=== PATIENT | male | born 1960 | race Caucasian/White ===

== ENCOUNTER 2019-10-13 21:09 | Emergency (ER) | payer SELFPAY ==
[2019-10-13 21:22] VITALS: BP 183/102; PULSE 109; RESP 18; TEMP 37; O2SAT 98; BMI 39.9
--- NOTE | 2019-10-13 21:23 | XR_ITS ---
WS: [id number] PORTABLE CHEST HISTORY: cough COMPARISON: 06/06/2017 Elevated RIGHT hemidiaphragm with mild eventration is stable. Lungs are clear. No pleural effusion or pneumothorax. Cardiac size: Normal. Mediastinum/Aorta: Normal mediastinum. No osseous abnormality seen. XR/XR chest 1V portable [id number] IMPRESSION: Unremarkable portable chest.
[2019-10-13 22:21] LABS: Basophils # 0.1 10^3/uL (0.0-0.1); Basophils % 0.7 %; Eosinophils # 0.9 10^3/uL (0.0-0.8); Eosinophils % 7.6 %; Hematocrit 43.9 % (42.0-52.0); Hemoglobin 14.1 g/dL (11.7-16.6); Lymphocytes # 1.8 10^3/uL (0.8-4.8); Lymphocytes % 14.7 %; Mean Corpuscular HGB Conc 32.1 g/dL (30.0-36.0); Mean Corpuscular Hemoglobin 27.3 pg (28.0-34.0); Mean Corpuscular Volume 85.1 fL (80-94); Mean Platelet Volume 9.3 fL (7.4-10.4); Monocytes # 0.8 10^3/uL (0.2-0.9); Monocytes % 6.9 %; Neutrophils # 8.4 10^3/uL (1.8-7.7); Neutrophils % 69.6 %; Nucleated Red Blood Cells % 0 %; Platelet Count 416 10^3/cmm (130-400); Red Blood Count 5.16 10^6/uL (4.1-5.3); Red Cell Distribution Width 13.2 % (12.1-15.1)
[2019-10-13 22:45] LABS: Alanine Aminotransferase 33 U/L (0-41); Albumin Level 4.6 g/dL (3.5-5.2); Alkaline Phosphatase 128 IU/L (40-130); Anion Gap 17.4 (5-19); Aspartate Amino Transferase 34 U/L (0-40); Blood Urea Nitrogen 19 mg/dL (6-20); Carbon Dioxide 26 mmol/L (22-29); Chloride 99 mmol/L (98-107); Glucose 256 mg/dL (74-109); NT Pro B Type Natriuretic Pept 22 pg/mL (0-125); Potassium 4.4 mmol/L (3.5-5.1); Sodium 138 mmol/L (136-145); Total Bilirubin 0.2 mg/dL (0.15-1.2); Total Protein 7.6 g/dL (6.6-8.7)
--- NOTE | 2019-10-13 23:40 | ED_ITS ---
Entered by Loly Carter, acting as scribe for Caity Abdul MD Oct 13, 2019 21:09 HPI - SOB/Dyspnea General: Chief Complaint: Shortness of Breath/Dyspnea Stated Complaint: SOB, COUGHING Time Seen by Provider: 10/13/19 23:37 Source: patient Mode of arrival: ambulatory Limitations: no limitations History of Present Illness: HPI Narrative: 59 yo m came to the er pov with family. Onset was yesterday. Pt states that he was coughing so much that he had 2 syncope episodes. Pt states that he can lay flat at all. Pt states that his cough has been getting worse. MD elicited complaint: shortness of breath and cough Onset (ago): day(s) (today) Timing: constant Severity: mild Exacerbating factors: nothing Relieving factors: oxygen and rest Associated symptoms: Deny abdominal pain, chest pain, fever(s), polyuria or vomiting Related Data: Home oxygen amount: none Review of Systems Const: Denies: fever or chills Eyes: Denies: change in vision ENMT: Denies: throat pain or mouth pain Card: Denies: chest pain Resp: Reports: shortness of breath GI: Denies: abdominal pain or vomiting Musc: Denies: back pain or joint pain Skin/Breast: Denies: rash Neuro: Denies: headache Psych: Denies: depression Endo: Denies: excessive urination Jayden/Lymph: Denies: easy bruising All/Imm: Denies: hives PFSH ED PFSH: Statuses (acute, chronic, etc) shown below reflect problem list status as previously entered and may not be historically accurate Social History Smoking and tobacco status: former smoker Physical Exam Const: COMMON NORMALS: no apparent distress and healthy appearing HENMT: COMMON NORMALS: normocephalic and external nose normal HEAD & SCALP: normocephalic NOSE: external nose normal and no nasal discharge (nasal dischage) Eye: COMMON NORMALS: PERRL PUPIL: Yes PERRL Neck/C-Spine: COMMON NORMALS: full ROM and no lymphadenopathy Chest: COMMONS NORMALS: inspection of chest normal Resp: COMMON NORMALS: normal respiratory effort OTHER: diffuse wheezes Cardio: COMMON NORMALS: regular rate and regular rhythm RATE: regular rate RHYTHM: regular rhythm GI: COMMON NORMALS: soft to palpation PALPATION: Yes soft Extremity: COMMON NORMALS: normal to inspection, full ROM and normal capillary refill Psych: COMMON NORMALS: mental status grossly normal and cooperative Skin: COMMON NORMALS: no rashes or lesions noted GENERAL SKIN EXAM: no rashes or lesions noted Course Vital Signs: Vital signs: Vital Signs Temperature 98.6 F 10/13/19 21:22 Pulse Rate 105 H 10/14/19 00:35 Respiratory Rate 17 10/14/19 00:32 Blood Pressure 183/102 10/13/19 21:22 Pulse Oximetry 93 10/14/19 00:32 MDM - SOB/Dyspnea MDM Narrative: Medical decision making narrative: Patient presents here with cough along with bronchitis. Patient has no signs of pneumonia and white cell count here is normal. Patient's feels much improved after breathing treatment will place on steroids for 5 days. Patient is to stop his lisinopril as well. Patient is to follow-up with primary care doctor in 3 to 5 days and return if worsening. Lab Data: Labs: Lab Results 10/13/19 10/13/19 Range/Units 22:16 22:16 WBC 12.0 H (4.0-10.0) 10^3/ uL RBC 5.16 (4.1-5.3) 10^6/u L Hgb 14.1 (11.7-16.6) g/dL Hct 43.9 (42.0-52.0) % MCV 85.1 (80-94) fL MCH 27.3 L (28.0-34.0) pg MCHC 32.1 (30.0-36.0) g/dL RDW 13.2 (12.1-15.1) % Plt Count 416 H (130-400) 10^3/c mm MPV 9.3 (7.4-10.4) fL Neut % (Auto) 69.6 % Lymph % (Auto) 14.7 % [place] % (Auto) 6.9 % Eos % (Auto) 7.6 % Baso % (Auto) 0.7 % Neut # (Auto) 8.4 H (1.8-7.7) 10^3/u L Lymph # (Auto) 1.8 (0.8-4.8) 10^3/u L [place] # (Auto) 0.8 (0.2-0.9) 10^3/u L Eos # (Auto) 0.9 H (0.0-0.8) 10^3/u L Baso # (Auto) 0.1 (0.0-0.1) 10^3/u L Nucleated RBC % (a uto) 0 % Nucleated RBCs # 0.0 /100WBC Sodium 138 (136-145) mmol/L Potassium 4.4 (3.5-5.1) mmol/L Chloride 99 (98-107) mmol/L Carbon Dioxide 26 (22-29) mmol/L Anion Gap 17.4 (5-19) BUN 19 (6-20) mg/dL Creatinine 0.9 (0.7-1.2) mg/dL GFR Calculation 87.0 L (90-130) mL/min Glucose 256 H (74-109) mg/dL Calcium 10.0 (8.6-10.0) mg/Dl Total Bilirubin 0.2 (0.15-1.2) mg/dL AST 34 (0-40) U/L ALT 33 (0-41) U/L Alkaline Phosphata se 128 (40-130) IU/L NT-Pro-B Natriuret Pep 22 (0-125) pg/mL Total Protein 7.6 (6.6-8.7) g/dL Albumin 4.6 (3.5-5.2) g/dL Globulin 3.0 (1.3-4.6) g/dL Discharge Plan Discharge Patient Disposition: Home, Self-Care Clinical Impression: Bronchitis Condition: Stable Prescriptions: New prednisone 50 mg tablet 50 mg PO DAILY Qty: 5 RF: 0 No Action albuterol sulfate 2.5 mg /3 mL (0.083 %) solution for nebulization 2.5 mg inhalation Q6H RF: 0 Flomax 0.4 mg capsule 0.4 mg PO DAILY RF: 0 Prinivil 10 mg tablet 10 mg PO DAILY RF: 0 Neurontin 100 mg capsule 100 mg PO TID RF: 0 ProAir HFA 90 mcg/actuation HFA aerosol inhaler 90 mcg INHALATION Q2H RF: 0 Novolog Mix 70-30FlexPen U-100 100 unit/mL (70-30) insulin pen 5 unit SUBCUT TID RF: 0 Lantus Solostar U-100 Insulin 100 unit/mL (3 mL) insulin pen 25 unit SUBCUT DAILY RF: 0 Discharge Orders: Discharge Order (Routine); Ordered 10/14/19 Ordered By: Caity Abdul Discharge Diet: Advance as tolerated Discharge Activity: Resume usual activity Patient Instructions: Acute Bronchitis (ED) Coding Level of Care Code ED Administrative Sales Assistant for Chg Fwd Exam Problem Focused The documentation recorded by the Raul donald Stephanie Lyn, accurately reflects the service I personally performed and the decisions made by Franko botello Korby, MD Oct 13, 2019 21:09
[2019-10-14 00:31] VITALS: PULSE 100; RESP 18; O2SAT 95
[2019-10-14] MEDS: ipratropium-albuterol 3 mL Neb INHALATION (00:31)
[2019-10-14 00:32] VITALS: PULSE 108; RESP 17; O2SAT 93
[2019-10-14 00:35] VITALS: PULSE 105
[2019-10-14 02:07] VITALS: BP 154/86; PULSE 102; RESP 14; O2SAT 96
== END 2019-10-14 01:40 | disposition home or self-care (01) ==
PROVIDERS: Emergency Provider Emergency Medicine
DX: J40 Bronchitis, not specified as acute or chronic (principal); Z79.4 Long term (current) use of insulin; Z87.891 Personal history of nicotine dependence
CPT/HCPCS: 36415; 71045; 80053; 83880; 85025; 96374; 99281; J2930

== ENCOUNTER 2019-12-02 20:09 | Emergency (ER) | payer SELFPAY ==
[2019-12-02 20:29] VITALS: BP 146/91; PULSE 95; RESP 18; TEMP 36.9; O2SAT 95; BMI 39.1
== END 2019-12-02 20:57 | disposition left against medical advice (07) ==
LOC: ER 21:10
DX: M54.9 Dorsalgia, unspecified (principal); M54.2 Cervicalgia; Z53.21 Procedure and treatment not carried out due to patient leaving prior to being seen by health care provider
CPT/HCPCS: 99281

== ENCOUNTER 2019-12-03 12:32 | Emergency (ER) | payer SELFPAY ==
[2019-12-03 12:33] VITALS: BP 134/87; PULSE 107; RESP 18; O2SAT 96; BMI 39.9
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
[2019-12-03] MEDS: HYDROcodone-acetaminophen 5-325 mg Tablet 1 TAB PO (12:57)
[2019-12-03 13:51] VITALS: BP 128/73; PULSE 96; RESP 18; O2SAT 94
== END 2019-12-03 13:51 | disposition home or self-care (01) ==
PROVIDERS: Emergency Provider Emergency Medicine
DX: S13.4XXA Sprain of ligaments of cervical spine, initial encounter (principal); S39.012A Strain of muscle, fascia and tendon of lower back, initial encounter; V89.0XXA Person injured in unspecified motor-vehicle accident, nontraffic, initial encounter
CPT/HCPCS: 72072; 72100; 73110; 99281; 99283

== ENCOUNTER 2020-04-05 13:34 | Emergency (ER) | payer SELFPAY ==
[2020-04-05 13:46] VITALS: BP 135/75; PULSE 97; RESP 14; TEMP 36.8; O2SAT 96; BMI 36.1
--- NOTE | 2020-04-05 16:04 | W.ED.SKABFB ---
Documented by User: ANDRESSA Cordero 04/06/20 17:27 HPI - Skin/Abscess/Foreign Bdy General: Chief complaint: Skin/Abscess/Foreign Body Stated complaint: sent from Time Seen by Provider: 04/05/20 15:46 History of Present Illness: HPI narrative: Patient is a 60-year-old male who comes to the ED with an abscess on his right palm and on right elbow. Patient has a past medical history of type 2 diabetes and hypertension. Patient was seen last in urgent care for the abscess on his right palm and he was given Bactrim and told to follow-up in a couple days for reevaluation. Patient says a couple days after abscess got worse on right palm and started draining puslike fluid. He also said that an abscess formed on the medial anterior side of right elbow, since . He went and saw Dr. Hoang today and was sent directly over to ED for further evaluation. Here in the ED both right palm and right elbow abscesses are tender and red. The palm abscess is actively draining purulent malodorous fluid. Patient denies any past history of MRSA or staph infections. Associated symptoms: Deny chills, fever(s), nausea or vomiting Review of Systems Const: Denies: fever(s), chills or fatigue Eyes: Denies: change in vision or eye discomfort ENMT: Denies: throat pain, odynophagia, nasal discharge or nasal congestion Card: Denies: chest pain, palpitations, edema, swelling of feet/ankles, dyspnea on exertion or orthopnea Resp: Denies: dyspnea, productive cough or non-productive cough GI: Denies: abdominal pain, nausea, vomiting, diarrhea, constipation or hematochezia : Denies: flank pain, difficulty urinating, dysuria or hematuria Musc: Denies: neck pain, back pain or extremity swelling Skin/Breast: Reports: new lesions; Denies: rash Neuro: Denies: headache(s), numbness in extremities or weakness in extremities [facility] ED PFSH: Medical History Hypertension Social History Smoking and tobacco status: never smoked Physical Exam Const: COMMON NORMALS: no acute distress, patient oriented x3 and alert GENERAL APPEARANCE: cooperative and comfortable HENMT: COMMON NORMALS: normocephalic HEAD & SCALP: normocephalic MOUTH: Normal oral and palatal mucosa present THROAT: posterior oropharynx normal and uvula midline Eye: COMMON NORMALS: Equal, round and reactive pupils present PUPIL: Yes Equal, round and reactive pupils present Neck/C-Spine: COMMON NORMALS: supple GENERAL: Yes normal visual inspection Resp: COMMON NORMALS: normal respiratory effort, No retractions, No use of accessory muscles and clear to auscultation bilaterally AUSCULTATION: clear to auscultation bilaterally Cardio: COMMON NORMALS: regular rate, regular rhythm, S1 normal heart sound present, S2 normal heart sound present, No gallops present (Cardio), No clicks present (Cardio), No murmurs present (Cardio) and Peripheral pulses 2+ throughout RATE: regular rate RHYTHM: regular rhythm HEART SOUNDS: S1 normal heart sound present and S2 normal heart sound present PERIPHERAL PULSES: Peripheral pulses 2+ throughout GI: COMMON NORMALS: Normal to inspection, nondistended, normoactive bowel sounds present, Soft to palpation, non-tender and no masses PALPATION: Yes Soft to palpation : COMMON NORMALS: Yes no CVA tenderness BLADDER/KIDNEY EXAM: Yes no CVA tenderness Back/Pelvis: COMMON NORMALS: no CVA tenderness Extremity: RIGHT UPPER EXTREMITY: Yes elbow joint (erythema warm and tender abscess with no drainage.) Right elbow: Yes inspection and Yes hand & digits Right hand and digits: Yes inspection (Abscess that is actively draining purulent fluid with surrounding erythema, warmth and tenderness.) Neuro: COMMON NORMALS: patient oriented x3 and moves all extremities SENSORIUM/ORIENTATION: Yes alert Skin: COMMON NORMALS: no rashes or lesions noted GENERAL SKIN EXAM: no rashes or lesions noted and dry skin Course Vital Signs: Vital signs: Vital Signs Temperature 98.3 F 04/05/20 13:46 Pulse Rate 94 04/05/20 22:40 Respiratory Rate 16 04/05/20 22:40 Blood Pressure 135/89 04/05/20 22:40 Pulse Oximetry 99 04/05/20 22:40 MDM - Skin/Abscess/Foreign Bdy Lab Data: Attestation: I reviewed the patient's lab results. Labs: Lab Results 04/05/20 04/05/20 04/05/20 Range/Units 16:30 16:30 16:30 WBC 8.5 (4.0-10.0) 10^3/ uL RBC 5.15 (4.1-5.3) 10^6/u L Hgb 14.0 (11.7-16.6) g/dL Hct 44.3 (42.0-52.0) % MCV 86.0 (80-94) fL MCH 27.2 L (28.0-34.0) pg MCHC 31.6 (30.0-36.0) g/dL RDW 13.1 (12.1-15.1) % Plt Count 508 H (130-400) 10^3/c mm MPV 9.2 (7.4-10.4) fL Neut % (Auto) 62.6 % Lymph % (Auto) 24.1 % [place] % (Auto) 7.4 % Eos % (Auto) 3.9 % Baso % (Auto) 0.9 % Neut # (Auto) 5.3 (1.8-7.7) 10^3/u L Lymph # (Auto) 2.0 (0.8-4.8) 10^3/u L [place] # (Auto) 0.6 (0.2-0.9) 10^3/u L Eos # (Auto) 0.3 (0.0-0.8) 10^3/u L Baso # (Auto) 0.1 (0.0-0.1) 10^3/u L Nucleated RBC % (a uto) 0 % Nucleated RBCs # 0.0 /100WBC ESR 50 H (0-10) mm/hr Sodium 131 L (136-145) mmol/L Potassium 4.3 (3.5-5.1) mmol/L Chloride 93 L (98-107) mmol/L Carbon Dioxide 26 (22-29) mmol/L Anion Gap 16.3 (5-19) BUN 14 (6-20) mg/dL Creatinine 0.8 (0.7-1.2) mg/dL GFR Calculation 99.3 (90-130) mL/min Glucose 408 H (65-115) mg/dL Calculated Osmolal ity 285 (285-295) mOsm/k g Lactic Acid (0.5-2.2) mmol/L Calcium 9.4 (8.5-10.5) mg/dL Total Bilirubin 0.2 (0.15-1.2) mg/dL AST 19 (0-40) U/L ALT 29 (0-41) U/L Alkaline Phosphata se 136 H (40-130) IU/L C-Reactive Protein 41.2 H (0.0-4.9) mg/L Total Protein 8.1 (6.6-8.7) g/dL Albumin 4.0 (3.5-5.2) g/dL Globulin 4.1 (1.3-4.6) g/dL 04/05/20 Range/Units 18:49 WBC (4.0-10.0) 10^3/ uL RBC (4.1-5.3) 10^6/u L Hgb (11.7-16.6) g/dL Hct (42.0-52.0) % MCV (80-94) fL MCH (28.0-34.0) pg MCHC (30.0-36.0) g/dL RDW (12.1-15.1) % Plt Count (130-400) 10^3/c mm MPV (7.4-10.4) fL Neut % (Auto) % Lymph % (Auto) % [place] % (Auto) % Eos % (Auto) % Baso % (Auto) % Neut # (Auto) (1.8-7.7) 10^3/u L Lymph # (Auto) (0.8-4.8) 10^3/u L [place] # (Auto) (0.2-0.9) 10^3/u L Eos # (Auto) (0.0-0.8) 10^3/u L Baso # (Auto) (0.0-0.1) 10^3/u L Nucleated RBC % (a uto) % Nucleated RBCs # /100WBC ESR (0-10) mm/hr Sodium (136-145) mmol/L Potassium (3.5-5.1) mmol/L Chloride (98-107) mmol/L Carbon Dioxide (22-29) mmol/L Anion Gap (5-19) BUN (6-20) mg/dL Creatinine (0.7-1.2) mg/dL GFR Calculation (90-130) mL/min Glucose (65-115) mg/dL Calculated Osmolal ity (285-295) mOsm/k g Lactic Acid 1.2 (0.5-2.2) mmol/L Calcium (8.5-10.5) mg/dL Total Bilirubin (0.15-1.2) mg/dL AST (0-40) U/L ALT (0-41) U/L Alkaline Phosphata se (40-130) IU/L C-Reactive Protein (0.0-4.9) mg/L Total Protein (6.6-8.7) g/dL Albumin (3.5-5.2) g/dL Globulin (1.3-4.6) g/dL Imaging Data^: Other CT: Attestation: I personally reviewed and interpreted this imaging study as follows: Radiologist's impression: [address] [address] [address] Scan Report Signed Patient: Sami Salazar #: [id number] : 2Acc#:[id number] Age/Sex: 60 / MADM Date: 04/05/20 Loc: ERRoom/Bed: Attending Dr: Ordering Provider/Ordering MD: Stu Sharpe Date of Service: 04/05/20 Procedure(s): CT forearm RT w con [id number] Accession Number(s): [id number] Report Number: [id number] PROCEDURE INFORMATION: Exam: CT Right Upper Extremity With Contrast Exam date and time: 04/05/2020 6:23 PM Age: 60 years old Clinical indication: Mass or lump; Elbow and hand; Right; Additional info: Abscess--include hand TECHNIQUE: Imaging protocol: CT of the Right upper extremity with intravenous contrast was performed. Radiation optimization: All CT scans at this facility use at least one of these dose optimization techniques: automated exposure control; mA and/or kV adjustment per patient size (includes targeted exams where dose is matched to clinical indication); or iterative reconstruction. Contrast material: OMNI 300; Contrast volume: 95 ml; Contrast route: INTRAVENOUS (IV); COMPARISON: No relevant prior studies available. RADIATION DOSE METRICS: Total DLP (mGy-cm): 1168.72 FINDINGS: Bones/joints: There is no acute fracture, dislocation or osteomyelitis in the forearm, elbow, hand or wrist. There is abundant gas in the subcutaneous fat anterior to the elbow joint and distal humerus. There is no elbow joint effusion. Soft tissues: There is no foreign body. There is edema of the subcutaneous fat and skin of the proximal forearm and distal upper arm greatest at the level of the antecubital fossa of the elbow just slightly medial of midline. No peripherally enhancing fluid collection or abscess is identified in the soft tissues or muscles. There is no gas in the muscles. CT/CT forearm [place] w con [id number] IMPRESSION: 1. Cellulitis of the proximal forearm/antecubital fossa with a large collection of gas, soft tissue edema and skin edema. No fluid collection or abscess. 2. No findings of compartment syndrome, intramuscular abscess or gas. No osteomyelitis or elbow joint effusion. Radiation Dose CTDIVOL = (mGy): DLP = 1168.72 (mGy-cm) Dictated By:Jaycee Mccartney Signed By:Makayla Mccartneyigned Date/Time:04/05/201839 DD/ 38 Discharge Plan Discharge Patient Disposition: Transfer to ED Condition: Good Prescriptions: No Action sulfamethoxazole-trimethoprim [Bactrim DS] 800-160 mg tablet 1 tab PO BID 10 Days Qty: 20 RF: 0 albuterol sulfate 2.5 mg /3 mL (0.083 %) solution for nebulization 2.5 mg inhalation Q6H PRN (Reason: Shortness Of Breath) RF: 0 albuterol sulfate [ProAir HFA] 90 mcg/actuation HFA aerosol inhaler 1 - 2 puff INHALATION Q6H PRN (Reason: Shortness Of Breath) RF: 0 insulin asp prt-insulin aspart [Novolog Mix 70-30FlexPen U-100] 100 unit/mL (70-30) insulin pen See Rx Instructions .ROUTE .COMPLEX RF: 0 Lantus Solostar U-100 Insulin 100 unit/mL (3 mL) insulin pen 25 - 30 unit SUBCUT QPM RF: 0 naproxen [EC-Naprosyn] 500 mg tablet,delayed release (DR/EC) 500 mg PO BID PRN (Reason: pain) Qty: 20 RF: 0 multivitamin [Multiple Vitamins] Tablet 1 tab PO DAILY RF: 0 telmisartan 40 mg tablet 20 mg PO DAILY RF: 0 Hair,Skin and Nails Tablet 1 tab PO DAILY RF: 0 Stool Softener 100 mg Tablet 100 mg PO DAILY RF: 0 Discharge Date/Time: 04/05/20 22:00 Coding Level of Care Code ED Hvac Mechanical Engineer for Chg Fwd Exam Comprehensive Documented by User: TANNA Tavera 04/06/20 00:39 HPI - Skin/Abscess/Foreign Bdy General: Chief complaint: Skin/Abscess/Foreign Body Stated complaint: sent from [facility] Time Seen by Provider: 04/05/20 15:46 PFSH ED PFSH: Medical History Hypertension Social History Smoking and tobacco status: never smoked Course Vital Signs: Vital signs: Vital Signs Temperature 98.3 F 04/05/20 13:46 Pulse Rate 94 04/05/20 22:40 Respiratory Rate 16 04/05/20 22:40 Blood Pressure 135/89 04/05/20 22:40 Pulse Oximetry 99 04/05/20 22:40 MDM - Skin/Abscess/Foreign Bdy MDM Narrative: Medical decision making narrative: Discussed case with Dr. Vance recommended talking to the surgeon on talk to surgeon Dr. Guillermina Sarmiento does not do anything distal to elbow. Spoke with the hospitalist Dr. Delcid. He does not want take it patient for admission due to complexity of the case that it might be a necrotizing fasciitis. Call [facility] surgeon there wants to go the ER to be evaluated. Lab Data: Labs: Lab Results 04/05/20 04/05/20 04/05/20 Range/Units 16:30 16:30 16:30 WBC 8.5 (4.0-10.0) 10^3/ uL RBC 5.15 (4.1-5.3) 10^6/u L Hgb 14.0 (11.7-16.6) g/dL Hct 44.3 (42.0-52.0) % MCV 86.0 (80-94) fL MCH 27.2 L (28.0-34.0) pg MCHC 31.6 (30.0-36.0) g/dL RDW 13.1 (12.1-15.1) % Plt Count 508 H (130-400) 10^3/c mm MPV 9.2 (7.4-10.4) fL Neut % (Auto) 62.6 % Lymph % (Auto) 24.1 % [place] % (Auto) 7.4 % Eos % (Auto) 3.9 % Baso % (Auto) 0.9 % Neut # (Auto) 5.3 (1.8-7.7) 10^3/u L Lymph # (Auto) 2.0 (0.8-4.8) 10^3/u L [place] # (Auto) 0.6 (0.2-0.9) 10^3/u L Eos # (Auto) 0.3 (0.0-0.8) 10^3/u L Baso # (Auto) 0.1 (0.0-0.1) 10^3/u L Nucleated RBC % (a uto) 0 % Nucleated RBCs # 0.0 /100WBC ESR 50 H (0-10) mm/hr Sodium 131 L (136-145) mmol/L Potassium 4.3 (3.5-5.1) mmol/L Chloride 93 L (98-107) mmol/L Carbon Dioxide 26 (22-29) mmol/L Anion Gap 16.3 (5-19) BUN 14 (6-20) mg/dL Creatinine 0.8 (0.7-1.2) mg/dL GFR Calculation 99.3 (90-130) mL/min Glucose 408 H (65-115) mg/dL Calculated Osmolal ity 285 (285-295) mOsm/k g Lactic Acid (0.5-2.2) mmol/L Calcium 9.4 (8.5-10.5) mg/dL Total Bilirubin 0.2 (0.15-1.2) mg/dL AST 19 (0-40) U/L ALT 29 (0-41) U/L Alkaline Phosphata se 136 H (40-130) IU/L C-Reactive Protein 41.2 H (0.0-4.9) mg/L Total Protein 8.1 (6.6-8.7) g/dL Albumin 4.0 (3.5-5.2) g/dL Globulin 4.1 (1.3-4.6) g/dL 04/05/ Range/Units 18:49 WBC (4.0-10.0) 10^3/ uL RBC (4.1-5.3) 10^6/u L Hgb (11.7-16.6) g/dL Hct (42.0-52.0) % MCV (80-94) fL MCH (28.0-34.0) pg MCHC (30.0-36.0) g/dL RDW (12.1-15.1) % Plt Count (130-400) 10^3/c mm MPV (7.4-10.4) fL Neut % (Auto) % Lymph % (Auto) % [place] % (Auto) % Eos % (Auto) % Baso % (Auto) % Neut # (Auto) (1.8-7.7) 10^3/u L Lymph # (Auto) (0.8-4.8) 10^3/u L [place] # (Auto) (0.2-0.9) 10^3/u L Eos # (Auto) (0.0-0.8) 10^3/u L Baso # (Auto) (0.0-0.1) 10^3/u L Nucleated RBC % (a uto) % Nucleated RBCs # /100WBC ESR (0-10) mm/hr Sodium (136-145) mmol/L Potassium (3.5-5.1) mmol/L Chloride (98-107) mmol/L Carbon Dioxide (22-29) mmol/L Anion Gap (5-19) BUN (6-20) mg/dL Creatinine (0.7-1.2) mg/dL GFR Calculation (90-130) mL/min Glucose (65-115) mg/dL Calculated Osmolal ity (285-295) mOsm/k g Lactic Acid 1.2 (0.5-2.2) mmol/L Calcium (8.5-10.5) mg/dL Total Bilirubin (0.15-1.2) mg/dL AST (0-40) U/L ALT (0-41) U/L Alkaline Phosphata se (40-130) IU/L C-Reactive Protein (0.0-4.9) mg/L Total Protein (6.6-8.7) g/dL Albumin (3.5-5.2) g/dL Globulin (1.3-4.6) g/dL Discharge Plan Discharge Patient Disposition: Transfer to ED Condition: Good Prescriptions: No Action sulfamethoxazole-trimethoprim [Bactrim DS] 800-160 mg tablet 1 tab PO BID 10 Days Qty: 20 RF: 0 albuterol sulfate 2.5 mg /3 mL (0.083 %) solution for nebulization 2.5 mg inhalation Q6H PRN (Reason: Shortness Of Breath) RF: 0 albuterol sulfate [ProAir HFA] 90 mcg/actuation HFA aerosol inhaler 1 - 2 puff INHALATION Q6H PRN (Reason: Shortness Of Breath) RF: 0 insulin asp prt-insulin aspart [Novolog Mix 70-30FlexPen U-100] 100 unit/mL (70-30) insulin pen See Rx Instructions .ROUTE .COMPLEX RF: 0 Lantus Solostar U-100 Insulin 100 unit/mL (3 mL) insulin pen 25 - 30 unit SUBCUT QPM RF: 0 naproxen [EC-Naprosyn] 500 mg tablet,delayed release (DR/EC) 500 mg PO BID PRN (Reason: pain) Qty: 20 RF: 0 multivitamin [Multiple Vitamins] Tablet 1 tab PO DAILY RF: 0 telmisartan 40 mg tablet 20 mg PO DAILY RF: 0 Hair,Skin and Nails Tablet 1 tab PO DAILY RF: 0 Stool Softener 100 mg Tablet 100 mg PO DAILY RF: 0 Discharge Date/Time: 04/05/20 22:00 Coding Level of Care Code ED Hvac Mechanical Engineer for [place] Fwd Exam Comprehensive
[2020-04-05 16:34] VITALS: BP 149/100; PULSE 92; RESP 14; O2SAT 97
[2020-04-05] MEDS: sodium chloride 0.9% 1,000 ML 999 ML IV (16:35)
[2020-04-05 16:38] LABS: Basophils # 0.1 10^3/uL (0.0-0.1); Basophils % 0.9 %; Eosinophils # 0.3 10^3/uL (0.0-0.8); Eosinophils % 3.9 %; Hematocrit 44.3 % (42.0-52.0); Lymphocytes % 24.1 %; Mean Corpuscular HGB Conc 31.6 g/dL (30.0-36.0); Mean Corpuscular Hemoglobin 27.2 pg (28.0-34.0); Mean Platelet Volume 9.2 fL (7.4-10.4); Monocytes # 0.6 10^3/uL (0.2-0.9); Monocytes % 7.4 %; Neutrophils # 5.3 10^3/uL (1.8-7.7); Neutrophils % 62.6 %; Nucleated Red Blood Cells % 0 %; Platelet Count 508 10^3/cmm (130-400); Red Blood Count 5.15 10^6/uL (4.1-5.3); Red Cell Distribution Width 13.1 % (12.1-15.1); White Blood Count 8.5 10^3/uL (4.0-10.0)
[2020-04-05 16:52] LABS: Alanine Aminotransferase 29 U/L (0-41); Alkaline Phosphatase 136 IU/L (40-130); Anion Gap 16.3 (5-19); Aspartate Amino Transferase 19 U/L (0-40); Blood Urea Nitrogen 14 mg/dL (6-20); C Reactive Protein 41.2 mg/L (0.0-4.9); Calcium 9.4 mg/dL (8.5-10.5); Carbon Dioxide 26 mmol/L (22-29); Chloride 93 mmol/L (98-107); Globulin 4.1 g/dL (1.3-4.6); Glomerular Filtration Rate 99.3 mL/min (90-130); Glucose 408 mg/dL (65-115); Osmolality Calculated 285 mOsm/kg (285-295); Potassium 4.3 mmol/L (3.5-5.1); Sodium 131 mmol/L (136-145); Total Bilirubin 0.2 mg/dL (0.15-1.2); Total Protein 8.1 g/dL (6.6-8.7)
[2020-04-05 17:09] VITALS: RESP 16; O2SAT 99
[2020-04-05] MEDS: morphine 4 mg/mL SDV 1 mL IVP ×2 (17:09→21:31)
[2020-04-05] MEDS: ondansetron 2 mg/ML SDV 2 mL 4 MG IVP (17:17)
--- NOTE | 2020-04-05 17:19 | CTR_ITS ---
PROCEDURE INFORMATION: Exam: CT Right Upper Extremity With Contrast Exam date and time: 04/05/2020 6:23 PM Age: 60 years old Clinical indication: Mass or lump; Elbow and hand; Right; Additional info: Abscess--include hand TECHNIQUE: Imaging protocol: CT of the Right upper extremity with intravenous contrast was performed. Radiation optimization: All CT scans at this facility use at least one of these dose optimization techniques: automated exposure control; mA and/or kV adjustment per patient size (includes targeted exams where dose is matched to clinical indication); or iterative reconstruction. Contrast material: OMNI 300; Contrast volume: 95 ml; Contrast route: INTRAVENOUS (IV); COMPARISON: No relevant prior studies available. RADIATION DOSE METRICS: Total DLP (mGy-cm): 1168.72 FINDINGS: Bones/joints: There is no acute fracture, dislocation or osteomyelitis in the forearm, elbow, hand or wrist. There is abundant gas in the subcutaneous fat anterior to the elbow joint and distal humerus. There is no elbow joint effusion. Soft tissues: There is no foreign body. There is edema of the subcutaneous fat and skin of the proximal forearm and distal upper arm greatest at the level of the antecubital fossa of the elbow just slightly medial of midline. No peripherally enhancing fluid collection or abscess is identified in the soft tissues or muscles. There is no gas in the muscles. CT/CT forearm RT w con [id number] IMPRESSION: 1. Cellulitis of the proximal forearm/antecubital fossa with a large collection of gas, soft tissue edema and skin edema. No fluid collection or abscess. 2. No findings of compartment syndrome, intramuscular abscess or gas. No osteomyelitis or elbow joint effusion. Radiation Dose CTDIVOL = (mGy): DLP = 1168.72 (mGy-cm)
[2020-04-05] MEDS: cefTRIAXone 2,000 MG in sodium chloride 0.9% (plus) 50 ML 100 MG IV (17:22)
[2020-04-05 17:33] LABS: Erythrocyte Sedimentation Rate 50 mm/hr (0-10)
[2020-04-05] MEDS: iohexol 300 mg/mL 100 mL Btl IV (18:24)
[2020-04-05 19:25] LABS: Lactic Sepsis W/Reflex 1.2 mmol/L (0.5-2.2)
[2020-04-05] MEDS: clindamycin 600 MG/50 ML PREMIX 100 MG IV (20:41)
[2020-04-05 21:31] VITALS: RESP 16; O2SAT 96
[2020-04-05 22:40] VITALS: BP 135/89; PULSE 94; RESP 16; O2SAT 99
== END 2020-04-05 22:00 ==
PROVIDERS: Physician Assistant; Emergency Provider Nurse Practitioner Family
DX: L02.413 Cutaneous abscess of right upper limb (principal); Z79.4 Long term (current) use of insulin; I10 Essential (primary) hypertension; E11.9 Type 2 diabetes mellitus without complications
CPT/HCPCS: 12345; 36415; 73201; 80053; 83605; 85025; 85651; 86140; 87040; 87070; 87075; 87077; 87186; 87205; 96365; 96366; 96367; 96368; 96372; 96375; 96376; 99282; 99285; J0696; J1815; J2270; J2405; J3370; J3490; J7030; J7050; Q9967

== ENCOUNTER 2020-04-25 13:23 | Outpatient (CLI) | payer SELFPAY | END 2020-04-25 13:24 | disposition home or self-care (01) | LOC: WOUND 13:27 | PROVIDERS: Visit Provider Emergency Medicine | DX: L98.492 Non-pressure chronic ulcer of skin of other sites with fat layer exposed (principal) | CPT/HCPCS: 11042; 87070; 87176; 87205; G0463 ==

== ENCOUNTER 2020-05-02 13:49 | Outpatient (CLI) | payer SELFPAY | END 2020-05-02 13:50 | disposition home or self-care (01) | LOC: WOUND 13:52 | PROVIDERS: Visit Provider Emergency Medicine | DX: Z09 Encounter for follow-up examination after completed treatment for conditions other than malignant neoplasm (principal) | CPT/HCPCS: 99212 ==